=== PATIENT | male | born 1940 | race Caucasian/White ===

== ENCOUNTER → 2020-04-26 | Outpatient (CLI) | payer OTHER ==
[~2020-04-26] MED LIST: Coumadin5 MG PO; LISHYD1012 PO; LISI5 PO; METO50 PO; METO50ER PO; TRAM50; WARF5 PO
== END | disposition home or self-care (01) ==
LOC: LAB 17:13 → LAB SHORT 17:13
DX: L03.119 Cellulitis of unspecified part of limb (principal)
CPT/HCPCS: 87070; 87075; 87205

== ENCOUNTER 2021-06-19 17:45 | Inpatient (IN) | payer OTHER ==
[~2021-06-19] VITALS: Ht 167.6 cm; Wt 89.7 kg
[2021-06-19 18:47] LABS: BASOPHILS ABSOLUTE AUTO 0.02 K/mm3 (0.00-0.23); BASOPHILS PERCENT AUTO 0 % (0-2); EOSINOPHILS PERCENT AUTO 0 % (0-6); Hematocrit 40.9 % (37.0-53.0); Hemoglobin 13.8 g/dL (13.5-17.5); IMMATURE GRAN ABSOLUTE AUTO 0.12 K/mm3 (0.00-0.10); IMMATURE GRAN PERCENT AUTO 1 % (0-1); LYMPHOCYTES ABSOLUTE AUTO 0.99 K/mm3 (0.84-5.20); LYMPHOCYTES PERCENT AUTO 5 % (21-46); MONOCYTES ABSOLUTE AUTO 1.07 K/mm3 (0.16-1.47); MONOCYTES PERCENT AUTO 6 % (4-13); Mean Corpuscular HGB 30.7 pg (26.0-34.0); Mean Corpuscular HGB Conc 33.7 g/dL (31.5-36.5); Mean Corpuscular Volume 91 fL (80-100); Mean Platelet Volume 8.7 fL (9.1-12.4); NEUTROPHILS ABSOLUTE AUTO 15.99 K/mm3 (1.96-9.15); NEUTROPHILS PERCENT AUTO 88 % (41-73); Platelet Count 349 K/mm3 (150-400); RDW Coefficient Variation 12.8 % (11.7-14.2); RDW Standard Deviation 42.5 fL (35.1-46.3); White Blood Cell Count 18.19 K/mm3 (4.00-11.30)
[2021-06-19 18:48] LABS: Base Excess Venous 0.4 mmol/L; Bicarbonate Venous 24.1 mmol/L (24.0-30.0); PCO2 Venous 42.7 mmHg (38-42); PO2 Venous 41.2 mmHg (38-42); pH Blood Venous 7.39 (7.34-7.37)
[2021-06-19 19:02] LABS: International Normalized Ratio 1.06; Prothrombin Time Results 11.1 Sec (9.7-11.5)
[2021-06-19 19:06] LABS: Albumin, Blood 3.5 g/dL (3.4-5.0); Albumin/Globulin Ratio 0.9 (0.8-1.8); Bilirubin, Total 0.7 mg/dL (0.1-1.0); Bun/Creatinine Ratio 24.8 (12.0-20.0); Calcium, Blood 9.9 mg/dL (8.5-10.1); Creatinine, Blood 2.66 mg/dL (0.60-1.20); Globulin, Blood 4.1 g/dL (2.2-4.0); Magnesium, Blood 2.3 mg/dL (1.6-2.4); Potassium, Blood 4.1 mmol/L (3.5-5.5); Total Protein, Blood 7.6 g/dL (6.4-8.2)
[2021-06-19 23:38] LABS: Source, Urine Catheter
[2021-06-19 23:45] LABS: Bilirubin, Urine Neg (Neg); Blood, Urine 4+ (Neg); Glucose Qualitative, Urine Neg (Neg); Ketones, Urine Neg (Neg); Leukocyte Esterase, Urine Neg (Neg); Nitrite, Urine Neg (Neg); Protein, Urine 2+ (Neg); Specific Gravity, Urine 1.025 (1.003-1.022); Urobilinogen, Urine NORM (Normal)
[2021-06-19 23:59] LABS: Appearance, Urine Clear (Clear); Color, Urine Yellow (P-Yellow)
[2021-06-20] LABS: Amorphous Light (0-Heavy); Bacteria Few /hpf; Granular Casts 0-2 /lpf (0); Squamous Epithelial Cells Few /hpf (Few); White Blood Cells, Urine Rare /hpf (0-5)
[2021-06-20 00:20] LABS: U Amphetamine Screen Not Detected; U Barbituate Screen Not Detected; U Benzodiazapine Screen Not Detected; U Buprenorphine Screen Not Detected; U Cannabinoids Screen DETECTED; U Cocaine Screen Not Detected; U Methadone Screen Not Detected; U Methamphetamine Screen Not Detected; U Opiates Screen DETECTED; U Oxycodone Screen Not Detected; U Phencyclidine Screen Not Detected; U Propoxyphene Screen Not Detected
[2021-06-20 01:01] LABS: Influenza A, PCR NEGATIVE (NEGATIVE); Influenza B, PCR NEGATIVE (NEGATIVE); Resp Syncytial Virus, PCR NEGATIVE (NEGATIVE); SARS-Cov-2 (COVID-19) PCR, MMC NEGATIVE (NEGATIVE)
--- NOTE | 2021-06-20 02:11 | NUR ---
DR ARANDA IN TO SEE PT. PLAN TO KEEP PT NPO AND ORTHO WILL SEE PT IN AM.
[2021-06-20 02:15] LABS: Hematocrit 37.7 % (37.0-53.0); Hemoglobin 12.6 g/dL (13.5-17.5); Mean Corpuscular HGB 30.5 pg (26.0-34.0); Mean Corpuscular HGB Conc 33.4 g/dL (31.5-36.5); Mean Corpuscular Volume 91 fL (80-100); Mean Platelet Volume 8.7 fL (9.1-12.4); Platelet Count 303 K/mm3 (150-400); RDW Coefficient Variation 12.7 % (11.7-14.2); RDW Standard Deviation 42.1 fL (35.1-46.3); Red Blood Cell Count 4.13 M/mm3 (4.30-5.90); White Blood Cell Count 16.34 K/mm3 (4.00-11.30)
[2021-06-20 02:18] LABS: Bun/Creatinine Ratio 31.6 (12.0-20.0); C-REACTIVE PROTEIN, EXT RANGE 5.72 mg/dL (0.000-0.300); Calcium, Blood 9.2 mg/dL (8.5-10.1); Creatinine, Blood 2.15 mg/dL (0.60-1.20); Potassium, Blood 3.7 mmol/L (3.5-5.5)
[2021-06-20 15:18] LABS: Glucose, Body Fluid 2 mg/dL
[2021-06-20 15:25] LABS: BODY FLUID RBC 0.374 M/mm3 (0-0); RBC Count, Synovial Fluid 374000 /mm3 (0-0); WBC Count, Synovial Fluid 2986 /mm3 (0-180)
--- NOTE | 2021-06-20 15:27 | NUR ---
SHIFT SUMMARY: LEFT HIP PATIENT IS ALERT AND ORIENTED X3. PATIENT HAS HTN BUT HAS PO METOPROLOL AND IV HYDRALAZINE IF SYSTOLIC IS >160. THE HYDRALAZINE HAS NOT NEEDED TO BE GIVEN YET THIS SHIFT. OTHERWISE PATIENT IS ON RA WITH >90% OXYGEN SATS. PATIENT HAS STAGE 1 PRESSURE ULCERS ON HIS BACK AND BUTTOCKS (PICTURES IN CHART). PATIENT IS TURNED ABOUT EVERY HOUR THIS SHIFT. HE NEEDS HELP USING THE URNAL. HE IS TOLERATING PO INTAKE AND IS VOIDING. PATIENT IS ON BEDREST SINCE AT BASELINE HE IS IN A WHEELCHAIR. CALL LIGHT WITHIN REACH. PATIENT CALLS APPROPRIATELY. THE PLAN IS TO AWAIT THE LABS FROM HIS ULTRASOUND ASPIRATION OF HIS LEFT HIP TO SEE IF HIS HIP IS SEPTIC OR NOT. THIS WILL DETERMINE IF HE WILL BE SENT UP TO [place] FROM HERE OR IS ABLE TO GO HOME AND MAKE AN APPOINTMENT. HOWEVER, BODY STYLIST HAS BEEN REQUESTED SINCE THE PATIENT LIVES ALONE WITH NO FAMILY INVOLVED. PATIENTS SON LIVES IN [place]. HE HAS A COUSIN WHO [place] IN [place]OWN BUT IS NOT INVOLVED WITH HIS CARE. PATIENT EVEN REPORTED "I PROBABLY SHOULDN'T BE LIVING ALONE ANYMORE ESPECIALLY SINCE I KEEP FALLING". COUSINS NAME IS GETACHEW AND HIS PHONE NUMBER IS [phone] AND HE WOULD LIKE UPDATES.
[2021-06-20 15:29] LABS: Appearance, Synovial Fluid Cloudy (Clear); Color, Synovial Fluid Red (None-P Yel)
[2021-06-20 15:39] LABS: Body Fluid Crystals NEG (NEGATIVE)
[2021-06-20 15:46] LABS: Lymphs, Synovial Fluid 2 % (0-15); Monocytes/Macrophages, Synovia 7 % (0-65); Neutrophils, Synovial Fluid 91 % (0-24)
[2021-06-21 04:45] LABS: BASOPHILS ABSOLUTE AUTO 0.05 K/mm3 (0.00-0.23); BASOPHILS PERCENT AUTO 1 % (0-2); EOSINOPHILS ABSOLUTE AUTO 0.17 K/mm3 (0.00-0.68); EOSINOPHILS PERCENT AUTO 2 % (0-6); Hematocrit 35.6 % (37.0-53.0); Hemoglobin 11.8 g/dL (13.5-17.5); IMMATURE GRAN ABSOLUTE AUTO 0.03 K/mm3 (0.00-0.10); IMMATURE GRAN PERCENT AUTO 0 % (0-1); LYMPHOCYTES PERCENT AUTO 17 % (21-46); MONOCYTES ABSOLUTE AUTO 0.84 K/mm3 (0.16-1.47); MONOCYTES PERCENT AUTO 8 % (4-13); Mean Corpuscular HGB 30.6 pg (26.0-34.0); Mean Corpuscular HGB Conc 33.1 g/dL (31.5-36.5); Mean Corpuscular Volume 93 fL (80-100); Mean Platelet Volume 8.7 fL (9.1-12.4); NEUTROPHILS ABSOLUTE AUTO 7.32 K/mm3 (1.96-9.15); NEUTROPHILS PERCENT AUTO 72 % (41-73); Platelet Count 275 K/mm3 (150-400); RDW Standard Deviation 43.9 fL (35.1-46.3); Red Blood Cell Count 3.85 M/mm3 (4.30-5.90); White Blood Cell Count 10.11 K/mm3 (4.00-11.30)
[2021-06-21 05:00] LABS: Anion Gap 4 mmol/L (6-16); Blood Urea Nitrogen 45 mg/dL (8-24); Bun/Creatinine Ratio 46.3 (12.0-20.0); CO2, Blood 26 mmol/L (21-32); Calcium, Blood 8.8 mg/dL (8.5-10.1); Chloride, Blood 106 mmol/L (98-108); Creatinine, Blood 0.97 mg/dL (0.60-1.20); Glomerular Filtration Rate >60 (60-); Glucose, Blood 101 mg/dL (70-99); Sodium, Blood 136 mmol/L (136-145)
--- NOTE | 2021-06-23 12:23 | NUR ---
SPOKE WITH AT THIS TIME. NO PLAN FOR SURGERY OR TRANSFER. PLAN TO EVAL FOR POSSIBLE REHAB. PT/OT ORDERS FOR THIS TIME, WBAT. WILL CTM
--- NOTE | 2021-06-23 18:06 | NUR ---
SUMMARY: NO ACUTE CHANGE TODAY. VSS, A/O, SOMETIMES FORGETFUL, BED ALARM SET. PT USING CALL LIGHT. DRESSINGS CHANGED TO UPPER BACK AND COCCYX WITH DR. ARANDA AT BEDSIDE. MEPILEX NOW CDI. PT ABLE TO TURN IN BED WITH ASSIST. THERAPY WORKED WITH PT, NEEDED MAX ASSIST AND 3 PEOPLE TO TRANSFER TO COMMODE. PT REPORTS NEEDING TO HAVE BM, BOWEL CARE GIVEN. PT HAS DENIED PAIN AT REST AND REPORTS SOME PAIN WITH MOVEMENT. NO ACUTE SAFETY CONCERNS, WILL CTM AND REPORT TO NOC RN.
--- NOTE | 2021-06-24 12:01 | NUR ---
COUSIN IN TO SEE PT PT ASKED THAT COUSIN BE GIVEN UPDATE. REMINDED VISITOR OF VISITING HOURS BEING 2-6 DAILY.
--- NOTE | 2021-06-24 17:15 | NUR ---
SUMMARY NO ACUTE CHANGES T/O SHIFT. PT TURNING SELF FROM SIDE TO SIDE IN BED. ATTENDS IN PLACE. PT BECAME VERY AGITATED W/OT THIS AFTERNOON WHEN THEY ATTEMPTED TO WORK W/HIM. SLEPT FOR MOST OF AFTERNOON. CALL LIGHT IN REACH.
--- NOTE | 2021-06-25 07:30 | NUR ---
SHIFT SUMMARY S/P OSTEOMYELITIS R/O, PT PAINFUL WHEN REPOSITIONING, WOUNDS ON BACK IMPROVING, PADDING IN PLACE ON BOTH BUTTOCKS WOUNDS. NO ACUTE EVENTS THIS SHIFT. CALL LIGHT IN REACH, REPORT GIVEN TO DAY RN.
--- NOTE | 2021-06-26 06:00 | NUR ---
VSS. PT INC THROUGHOUT SHIFT. MULTIPLE VOIDS W/ BRIEF CHANGES. L HIP PAIN, DENIED NEED FOR PAIN MEDICATION. PT ABLE TO TURN Q2 INDEPENDENTLY. C/O "UNCOMFORTABLENESS" TO LOWER ABD. PT GIVEN MIRALAX/MILK OF MAG PRN. PT CALLED APPROPRIATELY. NO ISSUES THROUGHOUT SHIFT.
--- NOTE | 2021-06-27 05:59 | NUR ---
VSS. DENIED NEED FOR PAIN MEDICATION WHEN OFFERED THROUGHOUT SHIFT. 1 ASSIST LOG ROLL IN BED TO CHANGE. INCONTINENT. BRIEF W/ PAD IN PLACE. PT CALLS APPROPRIATELY. NO ISSUES THROUGHOUT SHIFT.
--- NOTE | 2021-06-27 15:43 | NUR ---
PHYSICIAN NOTIFIED NO IV ACCESS NEEDED FOR PT AT THIS TIME
--- NOTE | 2021-06-27 16:52 | NUR ---
SHIFT SUMMARY PT ALERT AND ORIENTED. RESISTENT TO CARE AT TIMES. REPORTS SEVERE PAIN WITH AMBULATION. PT ABLE TO TURN SELF IN BED. PT WORKED WITH PT THIS AFTERNOON AND WAS ABLE TO SIT IN CHAIR FOR LUNCH. TWO PERSON ASSIST BACK TO BED THIS AFTERNOON.ORDERS FOR NO IV ACCESS. PT MEDICATED FOR PAIN, SEE EMAR. VITAL SIGNS STABLE. OXYGEN SATURATION MAINTAINED ABOVE 95% ON RA. PT NOT ON TELEMETRY. BRIEF IN PLACE FOR INCONTINENCE. CALL LIGHT WITHIN REACH. WILL CONT TO MONITOR UNTIL REPORT GIVEN TO NIGHTSHIFT RN.
--- NOTE | 2021-06-28 06:22 | NUR ---
PT IN BED AT THIS TIME WHERE HE REMAINS MUCH OF THE NIGHT AND IS RESTING COMFORTABLY AND IN STABLE CONDITION. ASSISTED WITH CARE AND ADLS, ASSISTED WITH BATHROOM And TOILETING NEEDS, MEDICATED INDICATED. CALL BONILLA GIVEN TO HIM AND URGED TO CALL FOR HELP WHEN ASSISTANCE IS NEEDED HE IS MONITORED.
--- NOTE | 2021-06-28 18:25 | NUR ---
SHIFT SUMMARY PT ALERT AND ORIENTED. PT ABLE TO TURN SELF IN BED NEEDED. VSS. NO CP OR PRESSURE REPORTED. BRIEF ON FOR INCONTINENCE. PT USED CALL LIGHT TO INFORM FOREST ECONOMIST/NURSE THAT PT HAD BM. FOREST ECONOMIST WAS ON LUNCH AND THIS RN WAS SPEAKING WITH PHYSICIAN REGARDING A CRITICAL PT. WITHIN 5 MINUTES THIS RN CHECKED ON PT. THE PT WAS VERY ANGRY AND STATED HE WANTED TO "GET OUT OF THIS HOSPITAL BECAUSE THE HOSPITAL IS TOO UNDERSTAFFED!" THE PT WAS VERY ANGRY BECAUSE HE HAD A BM IN HIS BRIEF AND WANTED CHANGED. I INFORMED THE PT I GOT TO HIM QUICK POSSIBLE AND WITHIN A FEW SHORT MINUTES. PT APPOLOGIZED, BUT DID BRING UP THE ISSUE TO THE PHYSICIAN. THE PT APPOLOGIZED TO THIS RN REGARDING THE INCIDENT. NO ORDER FOR IV ACCESS. PT REPORTS NO PAIN T/O SHIFT. WILL CONT TO MONITOR UNTIL REPORT GIVEN TO NIGHTSHIFT RN.
--- NOTE | 2021-06-29 06:58 | NUR ---
PT IN BED WHERE HE REMAINS MUCH OF THE NIGHT AND IS RESTING COMFORTABLY. ASSISTED WITH CARE AND ADLS, MEDICATED INDICATED. CALL BONILLA GIVEN TO HIM AND ENCOURAGED TO CALL FOR HELP WHEN ASSISTANCE IS NEEDED HE IS MONITORED.
--- NOTE | 2021-06-29 15:31 | NUR ---
Reviewed chart and discussed case with white sugar boiler and Primary RN. Pt resting in bed upon arrival. Pt reports 8/10 pain that increased to 10/10 with exertion in his left hip. Mild dyspnea noted as evidenced by work of breathing when responding with long sentences during conversation. Engaged in therapeutic listening as Pt reports being having 2 children who live in [place], 1 son, and 1 daughter. He reports being in routine communication with his son and is not very close with his daughter. Pt reports living in [place] for 22 years and states "loved every minute of it". He reports having several [employer] jobs in [place]. He also reports being a and served in the [employer]. This RN thanked him for his services. Continued therapeutic listening as Pt reports dealing with pain in his left hip for over a year and has dealt with barriers in regard to seeing a surgeon. As Pt discusses the frustration regarding his pain, he engages in conversation regarding plan to commit suicide due to the severe pain he experiences. He states "when I get my ducks in a row", then points to his head using his hand as an imaginary gun. Asked Pt if he intends to kill himself with Pt confirming yes. He reports his guns have been taken away and preferred method would be using a garden hose installed in exhaust pipe of vehicle and inserting in car window with him in it. He also reports having multiple medications that he can take to end his life. Pt states "I just can't do this anymore". Continued therapeutic listening. Pt becomes more painful and anxious and this RN ended visit to allow Pt to rest. Spoke with white sugar boiler and reported conversation including Pt reporting plan to commit suicide in the future. Spoke with Dr Muro and reported concersation. Dr Muro will place psych consult. Palliative Care will remain available.
--- NOTE | 2021-06-29 16:12 | NUR ---
PT PLACED ON CAMERA MONITORS.
--- NOTE | 2021-06-29 18:10 | NUR ---
PATIENT WAS PLACED IN SUICIDE PRECATIONS AT 1530 TODAY AFTER HE TALKED WITH PALLATIVE CARE. PALLATIVE CARE VOICED CONCERN AFTER PATIENT STATED HE HAD A PLAN TO KILL HIMSELF WHEN HE DISCHARGED HOME BY EITHER A GUN, A HOSE OR TAKING ALL OF HIS PILLS. ALL DANGEROUS ITEMS REMOVED FROM ROOM THAT COULD CAUSE HARM. PLACED ON VIDEO MONITORING. PATIENT DID TELL PALLITIVE CARE HE DOES NOTE PLAN TO HARM HIMSELF HERE IN THE HOSPTIAL ONLY WHEN HE GOES HOME. WHEN DOING ASSESMENT THIS NURSE ASKED THE QUESTIONS AND PATIENT REFUSED TO ANSWER. DOOR IS OPEN. PATIENT HAS HAD TO COMPLAINTS. NO SIGNS OR SYMPTOMS ACUTE DISTRESS NOTED. PSYCH CONSULTED AND FAXED ORDERS. WILL MONITOR CLOSELY.
--- NOTE | 2021-06-30 05:59 | NUR ---
PT IS IN BED AT THIS TIME WHERE HE REMAINS THROUGHOUT THE NIGHT AND IS RESTING IN STABLE CONDITION. NO BEHAVIOR MODIFICATION NOTED, AAO, DENIES ANY PAIN AT THIS TIME. ASSISTED WITH CARE/ADLS, ASSISTED WITH BATHROOM NEEDS. HIS CALL LIGHT WAS GIVEN TO HIM AND WAS REMINDED TO CALL FOR HELP WHEN ASSISTANCE IS NEEDED HE IS MONITORED.
--- NOTE | 2021-06-30 08:59 | NUR ---
PATIENT SITTING UP IN BED AND ATE HIS BREAKFAST. GOOD APPETITE NOTED. REFUSED TO ANSWER SUICIDE QUESTIONS THIS MORNING AGAIN. HE GET ANGRY AND STOPS TALKING WHEN ASKED ABOUT IT. MEDICATED FOR PAIN THIS MORNING. CALL LIGHT IN REACH. PATIENT REMAINS ON VIDEO MONITORING FOR SAFETY. WILL CONTINUE TO MONITOR.
--- NOTE | 2021-06-30 17:37 | NUR ---
PATIENT CURRENTLY SITTING UP IN BED EATING HIS MEAL. NO SIGNS OR SYMPTOMS ACUTE DISTRESS NOTED. CALL LIGHT AND WATER IN EASY REACH. ABLE TO MAKE NEEDS AND WANTS KNOWN. PATIENT REMAINS ON LOW SUICIDE PRECAUTIONS. CURRENTLY DOES NOT WANT TO HARM SELF HERE AT THE HOSPITAL. PATIENT HAS BEEN MEDICATED FOR PAIN TODAY SEE EMAR. WILL MONITOR.
--- NOTE | 2021-07-01 06:05 | NUR ---
A/OX3, FORGETFULNESS. LOW SUICIDE PRECAUTIONS. SUICIDE SHIFT ASSESSMENT COMPLETED. PT ON CONTINUOUS VIDEO MONITORING. C/O L HIP PAIN-SEE EMAR. +INCONTINENT. BRIEF IN PLACE. NO ISSUES THROUGHOUT SHIFT.
--- NOTE | 2021-07-01 17:52 | NUR ---
PATIENT UP TO BSC TODAY WITH X-LARGE BM. USED WALKER TOLERATED WELL. NO SIGNS OR SYMPTOMS ACUTE DISTRESS NOTED. PT WORKED WITH PATIENT TODAY. DENIED NEED FOR PAIN MEDS TODAY. CALL LIGHT AND WATER IN EASY REACH. ABLE TO MAKE NEEDS AND WANTS KNOWN. ALERT AND ORIENTED. CONTINUES SI PRECATUIONS WITH LOW LEVEL OF NEED, VIDEO MONITORING CONTINUES. APPETITE BETTER TODAY. WILL MONITOR.
--- NOTE | 2021-07-02 06:22 | NUR ---
A/OX3, FORGETFUL. VSS. INCONTINENT OF STOOL/URINE. BRIEF IN PLACE. CHANGED THROUGHOUT NIGHT. C/O PAIN TO L HIP. PAIN MEDS GIVEN-SEE EMAR. FOAM PLACED UPON R SCAPULA. FOAM X2 CHANGED TO BUTTOCKS. LOW SUICIDE PRECAUTIONS REMAIN IN PLACE. VIDEO MONITORING ON, BR LOCKED, DOOR LEFT OPEN. NO ISSUES THROUGHOUT SHIFT.
--- NOTE | 2021-07-02 06:34 | NUR ---
PT REFUSING TO LET RN CHECK BRIEF AT THIS TIME. WOULD LIKE TO KEEP SLEEPING WHILE HE HAS THE CHANCE. RN WILL PASS ON TO DAYSHIFT
--- NOTE | 2021-07-02 09:10 | NUR ---
PATIENT CURRENTLY LYING IN BED WITH NO SIGNS OR SYMPTOMS ACUTE DISTRESS NOTED. CALL LIGHT AND WATER IN EASY REACH. ABLE TO MAKE NEEDS KNOWN. INTERMITANT CONFUSION NOTED. REORIENTED. NO VOICED SI AT THIS TIME. PATIENT REFUSED PAIN MEDS THIS AM BUT TELLS DR GODFREY HE IS HURTING, AGAIN ASKED PATIENT IF HE WOULD LIKE PAIN MEDS AND HE DENIES. WILL MONITOR.
--- NOTE | 2021-07-02 18:00 | NUR ---
PATIENT HAD A GOOD DAY TODAY. NO SIGNS OR SYMPTOMS ACUTE DISTRESS NOTED. CALL LIGHT AND WATER IN EASY REACH. ABLE TO MAKE NEEDS AND WANTS KNOWN. PATIENT ASSISTED UP TO BSC TODAY WITH 2 PERSON ASSIST. APPETITE GOOD. REFUSED ALL PAIN MEDS TODAY. CLAUDIA ASSOCIATE CAME TO SEE PATIENT TO DAY TO TALK ABOUT THE FACILITY. PATIENT SAW CASE MANAGEMENT TODAY TO DISCUSS DISCHARGE OPTIONS. NO SI VOICED TODAY. WILL MONITOR.
--- NOTE | 2021-07-03 06:11 | NUR ---
AAOX, NO VERBALIZED SI AT THIS TIME. PT'S LEFT LEG HURTS AND WAS MEDICATED PER EMAR. CALL LIGHT JEREMIAH MACKEY, BED AT LOWEST POSTION, NO ACUTE DISTRESSS NOTED.
--- NOTE | 2021-07-03 16:31 | NUR ---
PATIENT CURRENTLY LYING IN BED WITH NO SIGNS OR SYMPTOMS ACUTE DISTRESS NOTED. CALL LIGHT AND WATER IN EASY REACH. ABLE TO MAKE NEEDS AND WANTS KNOWN. MEDICATED FOR PAIN TODAY SEE EMAR. MED EFFECTIVE FOR PAIN. WILL MONITOR.
--- NOTE | 2021-07-04 10:30 | NUR ---
PT DIRECTOR RIVER RESTORATION LIGHT THIS RN TO ROOM PT REPORTS THAT HE NEEDS "PAIN MEDICINE TO KNOCK ME OUT" PT DENIES PAIN AT THIS TIME, HE STS ALSO "I NEED PAIN MEDICATION TO KNOCK ME OUT I HAVEN'T SLEPT" PT IS EDUCATED THAT "KNOCKING" HIM OUT IS NOT THE INTENDED USE FOR PAIN MEDICATIONS PT STS "WELL WHEN I AM BEING GIVEN THE WRONG MEDICATIONS I CAN NOT SLEEP" PT IS AGAIN EDUCATED AND BECOMES ANGRY AND SHOUTING, PT IS NOTIFIED THAT THIS BEHAVIOR WILL NOT BE TOLERATED
[2021-07-04 13:32] LABS: Influenza A, PCR NEGATIVE (NEGATIVE); Influenza B, PCR NEGATIVE (NEGATIVE); Resp Syncytial Virus, PCR NEGATIVE (NEGATIVE); SARS-Cov-2 (COVID-19) PCR, MMC NEGATIVE (NEGATIVE)
--- NOTE | 2021-07-04 14:07 | NUR ---
report called to Ronald DIOP at [facility]
== END 2021-07-04 13:52 | DRG 917 ==
LOC: ER 17:45 → MEDS 23:29 → SURS 23:29 → ER 06-20 01:00 → SURS 06-20 01:36
PROVIDERS: Family Medicine; Internal Medicine; Orthopaedic Surgery; Student in an Organized Health Care Education/Training Program; ADMIT Internal Medicine
PROC: 3E02340 Introduction of Influenza Vaccine into Muscle, Percutaneous Approach (ICD-10-PCS; 2021-06-19)
PROC: 0S9B3ZZ Drainage of Left Hip Joint, Percutaneous Approach (ICD-10-PCS; principal; 2021-06-30)
DX: T40.711A Poisoning by cannabis, accidental (unintentional), initial encounter (principal); G92.8 Other toxic encephalopathy; R45.851 Suicidal ideations; N17.9 Acute kidney failure, unspecified; M16.12 Unilateral primary osteoarthritis, left hip; N40.0 Benign prostatic hyperplasia without lower urinary tract symptoms; Z20.822 Contact with and (suspected) exposure to COVID-19; F90.9 Attention-deficit hyperactivity disorder, unspecified type; Z86.73 Personal history of transient ischemic attack (TIA), and cerebral infarction without residual deficits; Z23 Encounter for immunization; G40.909 Epilepsy, unspecified, not intractable, without status epilepticus; Z79.899 Other long term (current) drug therapy; I10 Essential (primary) hypertension; Z98.890 Other specified postprocedural states; L89.301 Pressure ulcer of unspecified buttock, stage 1; N18.30 Chronic kidney disease, stage 3 unspecified; F44.4 Conversion disorder with motor symptom or deficit; Z99.3 Dependence on wheelchair
CPT/HCPCS: 0241U; 20611; 36415; 51701; 51798; 70450; 71046; 73502; 73700; 80048; 80053; 81001; 82803; 82945; 83605; 83735; 83880; 84157; 84484; 85025; 85027; 85610; 85651; 86140; 87040; 87070; 87075; 87205; 89051; 89060; 93005; 93010; 93970; 96365-59; 96367; 96375-59; 97110; 97162; 97165; 97530; 97530-CQ; 97535; 99285-25; A9270; J0360; J0690; J0692; J1650; J2270; J3010; J3370; J7030; J7050

== ENCOUNTER → 2021-10-12 | Outpatient (CLI) | payer OTHER ==
[2021-10-12 13:52] LABS: Blood, Urine 5+ (Neg); Glucose Qualitative, Urine Neg (Neg); Ketones, Urine 1+ (Neg); Leukocyte Esterase, Urine 3+ (Neg); Nitrite, Urine Pos (Neg); Protein, Urine 4+ (Neg); Specific Gravity, Urine 1.025 (1.003-1.022); Urobilinogen, Urine 1+ (Normal)
[2021-10-12 14:02] LABS: Appearance, Urine Hazy (Clear); Color, Urine Pale Yellow (P-Yellow)
[2021-10-12 14:03] LABS: Bilirubin, Urine 1+ (Neg)
[2021-10-12 14:05] LABS: Bacteria Many /hpf; Red Blood Cells, Urine 25-50 /hpf (0-2); Squamous Epithelial Cells Rare /hpf (Few)
[2021-10-12 14:06] LABS: Mucus Mod (0-Heavy)
== END | disposition home or self-care (01) ==
LOC: EDSTATUS 10:43 → LAB UVN 12:30
PROVIDERS: Internal Medicine
DX: N40.0 Benign prostatic hyperplasia without lower urinary tract symptoms (principal)
CPT/HCPCS: 81001; 87077; 87086; 87186

== ENCOUNTER → 2022-06-11 | Outpatient (CLI) | payer OTHER ==
[2022-06-11 15:15] LABS: Appearance, Urine Clear (Clear); Bilirubin, Urine Neg (Neg); Blood, Urine 3+ (Neg); Color, Urine Yellow (P-Yellow); Glucose Qualitative, Urine Neg (Neg); Ketones, Urine Neg (Neg); Leukocyte Esterase, Urine Neg (Neg); Nitrite, Urine Neg (Neg); Protein, Urine 1+ (Neg); Urobilinogen, Urine NORM (Normal)
[2022-06-11 15:48] LABS: Bacteria Few /hpf; Squamous Epithelial Cells Rare /hpf (Few); White Blood Cells, Urine 0-2 /hpf (0-5)
== END | disposition home or self-care (01) ==
LOC: LAB SHORT 12:25 → LAB 12:25
PROVIDERS: Internal Medicine
DX: N39.0 Urinary tract infection, site not specified (principal)
CPT/HCPCS: 81001

== ENCOUNTER 2024-07-28 18:55 | Emergency (ER) | payer OTHER ==
[~2024-07-28] VITALS: Ht 167.6 cm; Wt 117.9 kg
[2024-07-28 19:32] VITALS: BP 130/87
[2024-07-28 19:58] LABS: BASOPHILS PERCENT AUTO 1 % (0-2); EOSINOPHILS ABSOLUTE AUTO 0.06 K/mm3 (0.00-0.68); EOSINOPHILS PERCENT AUTO 1 % (0-6); Hematocrit 48.8 % (37.0-53.0); Hemoglobin 17.3 g/dL (13.5-17.5); IMMATURE GRAN ABSOLUTE AUTO 0.03 K/mm3 (0.00-0.10); IMMATURE GRAN PERCENT AUTO 0 % (0-1); LYMPHOCYTES ABSOLUTE AUTO 1.79 K/mm3 (0.84-5.20); LYMPHOCYTES PERCENT AUTO 14 % (21-46); MONOCYTES ABSOLUTE AUTO 0.81 K/mm3 (0.16-1.47); MONOCYTES PERCENT AUTO 6 % (4-13); Mean Corpuscular HGB 31.9 pg (26.0-34.0); Mean Corpuscular HGB Conc 35.5 g/dL (31.5-36.5); Mean Corpuscular Volume 90 fL (80-100); Mean Platelet Volume 8.8 fL (9.1-12.4); NEUTROPHILS PERCENT AUTO 78 % (41-73); Platelet Count 252 K/mm3 (150-400); RDW Coefficient Variation 12.3 % (11.7-14.2); RDW Standard Deviation 40.5 fL (35.1-46.3); Red Blood Cell Count 5.43 M/mm3 (4.30-5.90); White Blood Cell Count 12.69 K/mm3 (4.00-11.30)
[2024-07-28 20:14] LABS: Albumin, Blood 3.8 g/dL (3.4-5.0); Bilirubin, Total 0.5 mg/dL (0.1-1.0); Bun/Creatinine Ratio 15.5 (12.0-20.0); Calcium, Blood 10.1 mg/dL (8.5-10.1); Creatinine, Blood 1.48 mg/dL (0.60-1.20); Potassium, Blood 4.4 mmol/L (3.5-5.5); Total Protein, Blood 7.8 g/dL (6.4-8.2)
[2024-07-28] MEDS ORDERED: Lidocaine 2% Jelly Uro-Jet UR ONE (23:10)
[2024-07-28] MEDS ORDERED: Glycerin Adult Supp 1 EA PR ONE (23:55)
[2024-07-28] MEDS ORDERED: Polyethylene Glycol 3350 17 gm PO ONE (23:55)
[2024-07-29 00:18] LABS: Source, Urine Clean Catch
[2024-07-29 00:20] LABS: Bilirubin, Urine Neg (Neg); Blood, Urine 1+ (Neg); Glucose Qualitative, Urine Neg (Neg); Ketones, Urine Neg (Neg); Leukocyte Esterase, Urine Neg (Neg); Nitrite, Urine Neg (Neg); Protein, Urine Neg (Neg); Specific Gravity, Urine 1.015 (1.003-1.022); Urobilinogen, Urine NORM (Normal)
[2024-07-29 00:55] LABS: Appearance, Urine Clear (Clear); Color, Urine Yellow (P-Yellow)
[2024-07-29 00:56] LABS: Bacteria Few /hpf; Hyaline Casts 0-2 /lpf (0-2); Red Blood Cells, Urine 0-2 /hpf (0-2); Squamous Epithelial Cells Few /hpf (Few); White Blood Cells, Urine 0-2 /hpf (0-5)
== END 2024-07-29 02:36 | disposition home or self-care (01) ==
LOC: ER 18:55
PROVIDERS: Emergency Medicine
DX: K59.00 Constipation, unspecified (principal); R33.9 Retention of urine, unspecified; I10 Essential (primary) hypertension; Z79.899 Other long term (current) drug therapy
CPT/HCPCS: 51702; 51798; 74018; 80053; 81001; 83690; 85025; 99284-25; A9270